=== PATIENT | female | born 1960 | race Caucasian/White ===

== ENCOUNTER 2018-01-25 09:15 | Outpatient (CLI) | payer OTHER ==
--- NOTE | 2018-02-03 13:50 | MMO ---
BILATERAL SCREENING MAMMOGRAMS: INDICATIONS: Annual exam. COMPARISON: 01/23/2017 and 12/12/2009 FINDINGS: The interpretation of this examination was assisted with computer aided detection. The breast parenchyma is heterogeneously dense. There are benign scattered densities bilaterally. T here are benign appearing calcifications bilaterally. No suspicious mass, cluster of microcalcification, or area of architectural distortion is evident. IMPRESSION: BI-RADS Category 2: Benign. Recommend routine annual mammographic screening. POS: [facility]
== END 2018-01-25 09:16 | disposition home or self-care (01) ==
LOC: SCSMAMMO 09:15
PROVIDERS: ATTEND Family Medicine
DX: Z12.31 Encounter for screening mammogram for malignant neoplasm of breast (principal)
CPT/HCPCS: 77067

== ENCOUNTER 2019-01-27 08:29 | Outpatient (CLI) | payer OTHER ==
--- NOTE | 2019-01-27 09:49 | MMO ---
Bilateral MAMMO Bilat Screen [facility]. CLINICAL HISTORY: Patient is 58 years old and is seen for screening. The patient has the following family history of breast cancer: sister, at age 58. The patient has no personal history of cancer. The patient has a history of left Cyst Aspiration - MANY YEARS AGO. VIEWS: The views performed were: bilateral craniocaudal and bilateral mediolateral oblique. FILMS COMPARED: The present examination has been compared to prior imaging studies performed at [facility] on 01/25/2018, and at [facility] on 12/12/2009 and 01/23/2017. This study has been interpreted with the assistance of computer-aided detection. MAMMOGRAM FINDINGS: The breasts are heterogeneously dense, which could obscure a lesion on mammography. There are no suspicious masses, suspicious calcifications, or new areas of architectural distortion. IMPRESSION: THERE IS NO MAMMOGRAPHIC EVIDENCE OF MALIGNANCY. A ROUTINE FOLLOW-UP MAMMOGRAM IN 1 YEAR IS RECOMMENDED. ACR BI-RADS Category 1 - Negative MAMMOGRAPHY NOTE: 1. A negative mammogram report should not delay a biopsy if a dominant of clinically suspicious mass is present. 2. Approximately 10% to 15% of breast cancers are not detected by mammography. 3. Adenosis and dense breasts may obscure an underlying neoplasm.
== END 2019-01-27 08:30 | disposition home or self-care (01) ==
LOC: SCSMAMMO 08:29
PROVIDERS: ATTEND Family Medicine
DX: Z12.31 Encounter for screening mammogram for malignant neoplasm of breast (principal); Z80.3 Family history of malignant neoplasm of breast
CPT/HCPCS: 77067